=== PATIENT | male | born 1985 | race Caucasian/White ===

== ENCOUNTER 2016-07-10 14:10 | Emergency (ER) | payer SELFPAY ==
[~2016-07-10 14:10] MED LIST: ALBUTEROL SULF8.5 G1 IH; AMARYL4 M1 PO; AMOXICILLIN500 M PO; AMOXICILLIN875 MG PO; ASPIRIN LOW STR81 MG PO; AZMACORT20 G1; BACTRIM DS TAB1 EACH PO; BUFFERIN; CELEXA10 MG PO; CLEOCIN HCL300 MG PO; COMBIVENT INH14.7 GM; COMPAZINE10 M PO; DIABETIC MEDICATION; DIARRHEA MEDICATION; DUONEB; FLEXERIL10 MG PO; GLIMEPIRIDE2 MG PO; GLIPIZIDE XL2.5 MG PO; GLUCOPHAGE500 MG PO; HYDROCHLOROTH12.5 M1; IBUPROFEN200 M1 PO; IBUPROFEN200 MG; KEFLEX500 MG PO; LABETALOL HCL300 MG; LISINOPRIL10 MG PO; LISINOPRIL5 MG PO; LORTAB 5/500 TA1 TAB PO; METFORMIN HCL500 MG PO; MOTRIN600 MG PO; MOTRIN800 MG PO; MUCINEX; NORCO 5/325 TAB1 TAB PO; NORFLEX100 MG/TA1 PO; OXYCODONE/APAP PO; PEN-VEE K500 MG PO; PERCOCET 5/3251 TAB PO; PHENERGAN W/CO120 ML PO; PROBIOTIC1 EACH PO; REGLAN10 MG PO; TAMIFLU75 MG PO; THERAFLU; TRAMADOL HCL50 MG PO; TYLENOL #31 TA1 PO; TYLENOL325 MG PO; TYLENOL500 MG PO; ULTRAM50 MG PO; VICODIN 5/500 T1 TAB PO; VOLTAREN75 MG PO; ZITHROMAX250 MG PO; ZOCOR20 MG PO; ZOFRAN ODT4 MG/UDTAB PO; ZOFRAN4 MG PO
[2016-07-10] MEDS ORDERED: TRAMADOL HCL50 M2 PO (14:34)
[2016-10-19] MEDS ORDERED: PRINIVIL10 M1 PO (09:23)
[2016-10-19] MEDS ORDERED: INVOKAMET 150-1 EACH PO (09:24)
[2016-10-19] MEDS ORDERED: HUMALOG100 UNIT/2 SC (09:25)
[2016-10-19] MEDS ORDERED: TRAMADOL HCL50 M2 PO (10:58)
[2016-11-21] MEDS ORDERED: LEVEMIR100 UNITS/ SC (14:53)
[2016-11-21] MEDS ORDERED: GLUCOPHAGE500 M3 PO (15:00)
[2016-11-21] MEDS ORDERED: INVOKANA100 MG PO (15:01)
[2016-11-21] MEDS ORDERED: NORCO 5-325 TA1 EACH PO (15:43)
[2017-01-14] MEDS ORDERED: LIPITOR10 M1 PO (18:44)
[2017-01-14] MEDS ORDERED: NORCO 5-325 TA1 EACH PO (18:55)
[2017-01-14] MEDS ORDERED: IBUPROFEN600 M1 PO (18:55)
== END 2016-07-10 14:39 ==
LOC: EDMED 14:10
DX: M54.5 Low back pain (principal); E11.9 Type 2 diabetes mellitus without complications; I10 Essential (primary) hypertension; Z90.49 Acquired absence of other specified parts of digestive tract; Z79.899 Other long term (current) drug therapy